=== PATIENT | male | born 1990 | race Caucasian/White ===

== ENCOUNTER 2018-02-18 12:17 | Emergency (ER) | payer SELFPAY ==
[~2018-02-18] VITALS: Ht 175.3 cm; Wt 73.9 kg
[2018-02-18 12:27] VITALS: BP 126/87
--- NOTE | 2018-02-18 12:38 | NUR ---
Patient discharged to home in stable condition. Written and verbal after care instructions given. Patient verbalizes understanding of instruction.
== END 2018-02-18 12:37 | disposition home or self-care (01) ==
LOC: ER 12:21
DX: K52.9 Noninfective gastroenteritis and colitis, unspecified (principal); Z98.890 Other specified postprocedural states
CPT/HCPCS: 99283; A4606; Z7610